=== PATIENT | male | born 1945 | race Caucasian/White ===

== ENCOUNTER → 2019-08-28 | Outpatient (CLI) | payer OTHER, BC ==
[~2019-08-28] VITALS: Ht 170.2 cm; Wt 113.4 kg
[~2019-08-28] MED LIST: ASPIRIN EC81 M1 PO; ATORVASTATIN CA10 MG PO; BISOPROLOL FUMAR5 MG PO; CHOLESTEROL; PLAVIX 75 MG TA75 MG PO; THERA-M CAPLET1 EACH PO; VITAMIN D350 MC1 PO; ZETIA10 MG PO
--- NOTE | ~2019-08-28 | P ---
[facility] [place] [address] PROCEDURE REPORT Name: REID VANN JR Room #: REG [facility]#: [id number] Admission: 08/28/19 Attend Phys: Reid Goldberg MD Discharge: Date of : 47 Report #: [id number] THIS REPORT FOR: cc: Bernardino Mccoy,Reid Morris MD ~ CC: Reid Mccoy DO DATE OF SERVICE: 08/28/2019 OUTPATIENT COLONOSCOPY REPORT BRIEF HISTORY: The patient is a 74-year-old male who does have a prior history of colon adenomas who recently had an episode of marked rectal bleeding of uncertain etiology. He presents now for evaluation of his recent new onset rectal bleeding. PREOPERATIVE DIAGNOSES: Rectal bleeding, history of colon polyps. POSTOPERATIVE DIAGNOSES: 1. Multiple colon polyps. 2. Mild sigmoid diverticular disease. 3. Small internal hemorrhoids. MEDICATIONS: Deep sedation with propofol per anesthesia. SPECIMENS: 1. Polyp at 60 cm. 2. Polyp, proximal transverse colon. 3. Polyp at 20 cm. ESTIMATED BLOOD LOSS: 3 mL. PROCEDURE: Colonoscopy to cecum and terminal ileum with snare polypectomy. FINDINGS: Prior to propofol sedation, the procedure of colonoscopy was discussed with the patient as well as potential risks and its complications. He indicates he understands and desires to proceed. DESCRIPTION OF PROCEDURE: With the patient in left lateral decubitus position, digital examination was completed, which revealed no abnormalities. Subsequently, Olympus video colonoscope was introduced into the rectum, advanced under direct vision to the cecum. This was done with minimal difficulty. The cecum was identified by the ileocecal valve and the appendiceal orifice. At [facility] [address] [place] [address] PROCEDURE REPORT Name: REID VANN JR Room #: REG [facility].#: [id number] Admission: 08/28/19 Attend Phys: Reid Goldberg MD Discharge: Date of : 47 Report #: [id number] that point, the scope was slowly withdrawn and careful circumferential views obtained. Upon slow withdrawal of the scope, the prep was good. The mucosa was within normal limits, normal vascular pattern, normal light reflex. As we withdrew the scope, the mucosa was normal and no bleeding lesions were seen. No potentially bleeding lesions were seen as well. Vascular ectasias were not seen. As the scope was withdrawn, he was found to have a 4 mm flat polyp in the proximal transverse colon removed by cold snare polypectomy. Scope was further withdrawn and at 60 cm, another diminutive polyp less than 5 mm was seen and removed by cold snare polypectomy. In the sigmoid colon, there was mild sigmoid diverticular disease without endoscopic evidence of diverticulitis. Stigmata of bleeding was not identified. At 20 cm, another polyp was seen and was about 4-5 mm, removed by cold snare polypectomy and recovered. Scope was withdrawn in the rectum, no abnormalities were seen. Upon retroflexion, small hemorrhoids were seen. Stigmata of bleeding was not identified. The scope was withdrawn. The patient tolerated the procedure well. CONDITION OF THE PATIENT UPON DISCHARGE: Following procedure, the patient drowsy, aroused, conversant and will be discharged home when fully ambulatory. INSTRUCTIONS TO THE PATIENT AND FAMILY AT THE TIME OF DISCHARGE: We will follow up on the pathology. If all 3 polyps are adenomas, he should return in 3 years; if only 1 or 2 adenomas, he should return in 5 years; if by chance none are adenomas, followup in 10 years would be recommended. Further bleeding, a definite site was not seen. I suspect he likely bled from his small hemorrhoids. He could have had a diverticular bleed as well. Again active bleeding or stigmata of bleeding was not identified on today's exam. By: [id number] Reid Goldberg MD /nt
--- NOTE | 2019-08-29 17:07 | PATH ---
[facility] [place] [address] PATHOLOGY RPT PROCEDURE Name: REID VANN Room #: REG [facility].#: [id number] Admission: 08/28/19 Date of : 47 Discharge: Report #: [id number] Path Case #: [id number] [facility] Accession Number: [id number] . 01 Material submitted: . PART A: colon - POLYP AT 60CM PART B: colon - POLYLP AT PROXIMAL TRANSVERSE. Modifiers: proximal, transverse PART C: colon - POLYP AT 20CM . 01 Clinical history: . Bleeding in stools . 02 Diagnosis: A. Polyp, at 60 cm, endoscopic biopsy: - Tubular adenoma. - Negative for high-grade dysplasia. . B. Polyp, at proximal transverse, endoscopic biopsy: - Hyperplastic polyp. - Negative for dysplasia. . C. Polyp, at 20 cm, endoscopic biopsy: - Tubular adenoma. - Negative for high-grade dysplasia. (IUV:lucy; 08/29/2019) QMS 08/29/2019 1443 Local . 02 Electronically signed: . Naomi Magdaleno MD, Pathologist NPI- [id number] . 01 Gross description: . A. The specimen is received in formalin, labeled "Reid Vann Jr., polyp at 60 cm". Received is a segment of pale roe soft tissue measuring 0.8 cm in maximum dimensions. The specimen is submitted entirely in cassette A1. . B. The specimen is received in formalin, labeled "Reid Vann Jr., polyp at proximal transverse". Received is a segment of pale roe soft tissue measuring 0.5 cm in maximum dimensions. The specimen is submitted entirely in cassette B1. . C. The specimen is received in formalin, labeled "Reid Vann Jr., polyp at 20 cm". Received is a segment of pale roe soft tissue measuring 0.8 cm in maximum dimensions. The specimen is submitted entirely in cassette C1. [place] [address] PATHOLOGY RPT PROCEDURE Name: REID VANN Room #: REG [facility].#: [id number] Admission: 08/28/19 Date of : 47 Discharge: Report #: [id number] Path Case #: [id number] (CAA; 08/28/2019) QAC/QAC 08/28/2019 [facility] Local . 02 Pathologist provided ICD-10: D12.0, K63.5, D12.6 . 02 CPT . 612023, 704268, 369854 Specimen Comment: A courtesy copy of this report has been sent to [phone], [phone] Specimen Comment: [id number] Specimen Comment: Report sent to / DR BARGER Performed at: [address], [place], [place] [id number] MD Alex Estrada MD Phone: [phone] Performed at: [address] [id number] MD Naomi Magdaleno MD Phone: [phone]
== END | disposition home or self-care (01) ==
LOC: GI 06:51
DX: K62.5 Hemorrhage of anus and rectum (principal); Z86.010 Personal history of colon polyps; D12.5 Benign neoplasm of sigmoid colon; K57.30 Diverticulosis of large intestine without perforation or abscess without bleeding; K64.8 Other hemorrhoids; K21.9 Gastro-esophageal reflux disease without esophagitis; I10 Essential (primary) hypertension; E78.5 Hyperlipidemia, unspecified; G47.30 Sleep apnea, unspecified; Z98.890 Other specified postprocedural states; Z87.891 Personal history of nicotine dependence; Z79.899 Other long term (current) drug therapy; Z79.82 Long term (current) use of aspirin
CPT/HCPCS: 62110; 62900